=== PATIENT | female | born 2000 | race Caucasian/White ===

== ENCOUNTER 2025-01-11 19:10 | Emergency (ER) | payer MEDICAID ==
[~2025-01-11] VITALS: Ht 177.8 cm; Wt 97.5 kg
[2025-01-11 19:34] VITALS: TEMP 98.3
[2025-01-11 20:13] LABS: PLATELET COUNT (AUTO) 297 K/uL (150-450); RED BLOOD CELL COUNT(AUTO) 4.62 MIL/uL (4.0-5.2); RED CELL DISTRIBUTION WIDTH 13.7 % (11.5-15.0); WHITE BLOOD COUNT (AUTO) 7.1 K/uL (4.3-11.0)
[2025-01-11 20:19] LABS: CALCIUM, SERUM 9.3 mg/dL (8.5-10.1); CREATININE 1.0 mg/dL (0.6-1.3); SODIUM SERUM 138.0 mmol/L (136-145); UREA NITROGEN, BLOOD 10.0 mg/dL (7-18)
[2025-01-11 20:50] LABS: PREGNANCY TEST URINE QUAL NEGATIVE (NEGATIVE)
[2025-01-11 23:13] VITALS: BP 118/91; O2SAT 98
== END 2025-01-11 23:14 | disposition home or self-care (01) ==
LOC: ER 19:12
DX: R55 Syncope and collapse (principal); R56.9 Unspecified convulsions; R51.9 Headache, unspecified
CPT/HCPCS: 36415; 70450-TC; 80048-TC; 84484-TC; 84703-TC; 85025-TC